=== PATIENT | male | born 1960 | race Hispanic/Latino ===

== ENCOUNTER 2017-06-16 13:51 | Emergency (ER) | payer MEDICAID ==
[2017-06-16 13:51] VITALS: BMI 20.9
--- NOTE | 2017-06-16 15:01 | C.PDOC ---
History Of Present Illness 57 year old male brought to Emergency Department by EMS for evaluation after girlfriend found patient to be unresponsive. Patient was given 2mg of Narcan in field. Patient became alert, and oriented x3 prior to ED arrival. Patient admits to using 2 bags of heroin intravenously. States he did not intend to overdose or hurt himself. Also reports taking Xanax this morning. Notes that he occasionally drinks alcohol but did not drink today. Patient states that he feels fine, no complaints at this time. Time Seen by Provider: 06/16/17 14:25 Chief Complaint (Nursing): Substance Abuse History Per: Patient, EMS History/Exam Limitations: no limitations Onset/Duration Of Symptoms: Hrs Current Symptoms Are (Timing): Still Present Suicide/Self Injury Attempted (Context): None Severity: None Pain Scale Rating Of: 0 Associated Symptoms: Agitation. denies: Suicidal Thoughts, Suicidal Plan Recent travel outside of the [place]: No Additional History Per: Patient Past Medical History Reviewed: Historical Data, Nursing Documentation, Vital Signs Vital Signs: Last Vital Signs Temp 97.9 F 06/16/17 15:11 Pulse 89 06/16/17 15:11 Resp 16 06/16/17 15:11 BP 122/67 06/16/17 15:11 Pulse Ox 96 06/16/17 18:29 - Medical History PMH: Anxiety, Benign Prostatic Hyperplasia, Depression, Seizures (xanax withdrawal) Denies: Diabetes, Hepatitis, HIV, HTN, Chronic Kidney Disease, Sexually Transmitted Disease - [facility] Procedures COLONOSCOPY (08/03/14) DRUG DETOXIFICATION (11/11/14) LAPAROSCOPIC VIOLETA REP INGUINAL HERNIA W GRAFT OR PROSTH, NOS (06/12/14) Family History: States: Unknown Family Hx - Social History Hx Tobacco Use: No Hx Alcohol Use: No Hx Substance Use: Yes - Immunization History Hx Tetanus Toxoid Vaccination: No Hx Influenza Vaccination: No Hx Pneumococcal Vaccination: No Review Of Systems Except As Marked, All Systems Reviewed And Found Negative. Constitutional: Negative for: Fever, Chills Cardiovascular: Negative for: Chest Pain, Palpitations Respiratory: Negative for: Cough, Shortness of Breath Gastrointestinal: Negative for: Nausea, Vomiting, Abdominal Pain, Diarrhea Musculoskeletal: Negative for: Neck Pain, Back Pain Neurological: Negative for: Headache, Dizziness Psych: Negative for: Suicidal ideation Physical Exam - Physical Exam Appears: Non-toxic, No Acute Distress Skin: Normal Color, Warm, Dry Head: Atraumatic, Normacephalic Eye(s): bilateral: Normal Inspection Nose: Other (nasal cannula in place) Oral Mucosa: Moist Neck: Normal ROM, Supple Chest: Symmetrical Cardiovascular: Rhythm Regular, No Murmur Respiratory: Normal Breath Sounds, No Rales, No Rhonchi, No Wheezing Gastrointestinal/Abdominal: Soft, No Tenderness Extremity: Bilateral: Atraumatic, Normal ROM Neurological/Psych: Oriented x3, Normal Speech ED Course And Treatment O2 Sat by Pulse Oximetry: 96 Medical Decision Making Medical Decision Making: Patient was observed for an hour, vital signs remain stable. No withdrawal signs. Patient requesting to be discharged home. Disposition Counseled Patient/Family Regarding: Diagnosis, Need For Followup - Disposition Disposition: HOME/ ROUTINE Disposition Time: 15:00 Condition: STABLE Additional Instructions: [facility] at [address] [place] [address]. Please call [phone] or [phone] to arrange appointment. If you need to speak to someone immediately call Crisis Hotline [phone] Please call [phone] or [phone] to inquire about our Detox availability , may speak to coordinator Laura Instructions: Narcotic Abuse (ED) Forms: [facility] (French) - Clinical Impression Clinical Impression: Anxiety, Opiate abuse, episodic - PA / CURVE CLEANER / Resident Statement MD/DO has reviewed & agrees with the documentation as recorded. - Scribe Statement The provider has reviewed the documentation as recorded by the Lolitaibshelbi Cote All medical record entries made by the Scribe were at my direction and personally dictated by me. I have reviewed the chart and agree that the record accurately reflects my personal performance of the history, physical exam, medical decision making, and the department course for this patient. I have also personally directed, reviewed, and agree with the discharge instructions and disposition.
[2017-06-16 15:13] VITALS: BP 122/67; PULSE 89; RESP 16; TEMP 97.9
[2017-06-16 18:27] VITALS: O2SAT 96
== END 2017-06-16 15:17 | disposition home or self-care (01) ==
LOC: C.ER 13:51
DX: F11.10 Opioid abuse, uncomplicated (principal); F41.9 Anxiety disorder, unspecified